=== PATIENT | female | born 1985 | race African-American/Black ===

== ENCOUNTER 2023-09-28 20:30 | Emergency (ER) | payer BC, SELFPAY ==
[2023-09-28 20:35] VITALS: BP 168/106
--- NOTE | 2023-09-28 21:04 | ED.GENMED ---
History of Present Illness
General
Chief Complaint: Flank Pain
Source: patient
Exam Limitations: none
Time Seen by Provider: 09/28/23 20:43
Travel History
Have you had any contact with someone who has COVID-19?: No
Do you have any symptoms of coronavirus? Fever > 100 degrees, chills, cough, shortness of breath, sore throat, loss of taste or smell, muscle aches, or headache?: No
History of Present Illness
History of Present Illness:
This is a 38 year old female that comes in with c/o left sided abd pain. States that she has severe left sided abd pain that goes around to her back. States that the pain started over the weekend. States that she can't sleep on that side due to the
pain. States that she is nauseated, has a slight headache with urinary frequency. Denies any fever, chills, chest pain, SOB, vomiting, diarrhea, dizziness, urinary burning.
Past History
Past History
ED Past Medical History: Asthma, Cancer (Salivary gland CA), NIDDM and Other (IBS, )
ED Past Surgical History: and Other (Salivary gland removed)
Social History
Tobacco: Non-smoker
Alcohol: Occasional
Personal: Single
Living: alone
Review of Systems
Review of Systems
All Other Systems: ROS reviewed and negative except as documented in HPI and ROS
Constitutional: Reports no symptoms; Denies fever or chills
EENT: Reports no symptoms
Respiratory: Reports no symptoms; Denies cough or trouble breathing
Cardiac: Reports no symptoms; Denies chest pain
ABD/GI: Reports abdominal pain and nausea; Denies vomiting or diarrhea
: Reports frequency; Denies dysuria or urgency
Musculoskeletal: Reports back pain (Left sided back pain)
Skin: Reports no symptoms
Neurological: Reports headache (Slight); Denies dizzy
Psychiatric: Reports no symptoms
Phy Exam
General Physical Exam
General Presentation: no apparent distress
General age: appears stated age
General Skin: warm and dry
General Habitus: obese
General Mental: alert
General Hydration: appears well hydrated
ENT Exam
ENT Exam: TM's normal, pharynx normal and neck supple
Eye Exam
Eye Exam: EOMI
Cardiovascular Exam
Cardiovascular Exam: regular rate/rhythm, no edema, no murmur and normal peripheral pulses
Pulmonary Exam
Pulmonary Exam: lungs clear, no respiratory distress, no rales, chest non tender, no crackles, no rhonchi, no wheezing and no cough
Gastrointestinal Exam
Gastrointestinal Exam: normal bowel sounds, soft, no organomegaly, no pulsatile mass, non distended, cva tenderness (Left sided) and tender (Left sided abd tenderness with palpation)
Musculoskeletal Exam
Musculoskeletal Exam: full ROM and no edema
Skin Exam
Skin Exam: normal color, warm/dry and no rash
Psychiatric Exam
Psychiatric Exam: normal mood/affect
Course
Orders/Labs/Results
Orders:
Orders
09/28/23 21:03
0.9% Sodium Chloride 1000 ml [Nss] 1,000 ml IV BOLUS
Ketorolac [Toradol] 30 mg IV NOW STA
Test Result ONCE
09/28/23 21:04
CT Abd/pelvis W Iv Cont Urgent
Comment:
Reason For Exam: Left sided abd pain
09/28/23 21:09
Complete Blood Count/With Diff Urgent
Comprehensive Metabolic Panel Urgent
HCG, Serum Qualitative Screen Urgent
Urinalysis Reflex To Culture Urgent
Date Specimen was Collected: 09/28/23
Time Specimen was Collected: 21:08
Urine Microscopic Reflex Cult Urgent
09/29/23 00:20
Acetaminophen [Tylenol] 1,000 mg PO NOW STA
Abnormal Lab Results
09/28/23
21:09
Glucose 144 H mg/dl
(70-99)
Urine RBC 3-6 A /HPF
(0-2)
Urine Bacteria (Reflex) Few A
(Negative)
Urine Albumin (Reflex) 1+ A
(Neg - Trace)
09/28/23 21:09
09/28/23 21:09
Hyperglycemia, Urine negative for infection. HCG negative.
Vital Signs
Initial and Last Documented VS:
Initial Vital Signs
Pulse Resp BP Pulse Ox
78 24 168/106 100
09/28/23 20:35 09/28/23 20:35 09/28/23 20:35 09/28/23 20:35
Last Documented Vital Signs
Pulse Resp BP Pulse Ox
78 24 168/106 100
09/28/23 20:35 09/28/23 20:35 09/28/23 20:35 09/28/23 20:35
MDM/Problems Addressed
Differential Diagnosis Includes:
Diverticulitis, Renal calculus
MDM/Problems Addressed:
This is a 38 year old female that comes in with c/o left sided abd pain, flank and back pain. States that this started on over the weekened and has continued to get worse. States that she can't sleep on the left sided due to the pain.
Will get labs, CT abd. IV fluids and pain medication.
Back into see patient. Explained that her blood work is normal and her Urine is negative for infection. CT is negative for any acute process. Explained that this may be just musculoskeletal. Patient can use Tylenol 1000mg every 6 hours for pain and
alternate with ibuprofen 600mg every 6 hours with food. Patient to follow up with the family doctor. Encouraged patient to take her Metformin daily. Patient to return with any concerns.
Chronic conditions affecting care: DM
Acute Exacerbation and/or Progression of Chronic Illness:
NA
*Radiology
Radiology exam reviewed: radiology read reviewed (CT night hawk- Mild mural thickening of the bladder may represent cystitis. Correlation with UR is recommended. No evidence of obstructing ureteral calculus. No evidence of diverticulitis. Fatty
liver. )
*Pulse Oximetry
Patient hypoxic: no
*EKG
Interpreted by ED Provider?: NA
Rate: EKG- N/A
*Double Needle Operator Lockstitch Interpretation
Rate: Double Needle Operator Lockstitch- N/A
*Critical Care Note
Total Time (30-74mins, 75-104mins- exclusive of procedures): Not Applicable
ED Attending Note
-
Portions of this chart may have been created with voice recognition software.� Occasional wrong word or��sound alike� substitutions may have occurred due to the inherent limitations of voice recognition software.
Discharge Plan
Departure
Patient Disposition: Home (Routine Discharge)
Date of Disposition: 09/29/23
Time of Disposition: 00:41
Patient with high blood pressure during this ER visit?: Yes
Condition: Good
Covid-19: Not Applicable
Discharge Problem:
Musculoskeletal back pain
Instructions: BLOOD PRESSURE, Musculoskeletal Pain
Prescriptions:
No Action
prednisone 50 mg tablet
50 mg PO DAILY Qty: 5 0RF
Referrals:
PRIVATE,PHYSICIAN [Family Provider] -
Activity Restrictions/Additional Instructions:
As discussed, your blood work shows that your blood sugar is elevated and your urine is negative for infection. Your CT shows that you have a fatty liver but there is no acute process. Please increase your water intake to 8-8oz glasses daily. This
is most likely coming from the back. Please use Tylenol 1000mg every 6 hours for pain and alternate with Ibuprofen 600mg every 6 hours with food for pain. Follow up with the family doctor for recheck. IF YOU HAVE INCREASED OR CHANGING PAIN, OR YOU
HAVE ANY OTHER CONCERNS PLEASE RETURN TO THE EMERGENCY ROOM.
Interventions
Interventions:
*Risk Screen - Suicide Last Done: 09/28/23 20:35
*General Assessment Last Done: 09/28/23 21:03
*Neglect/Abuse Screening Last Done: 09/28/23 20:35
ED- Fall Risk Assessment Last Done: 09/28/23 21:03
*ED COVID-19 Vaccine History Last Done: 09/28/23 21:03
YP-Kkutms-Frvitfkdtq Assessment Last Done: 09/28/23 21:03
ED-Female Genitourinary Assessment Last Done: 09/28/23 21:03
Discharge Date and Time
Print Language: [place]
[2023-09-28] MEDS: NSS 1000 IV (21:26)
[2023-09-28 21:27] LABS: % Basophils 0.7 % (0-2); % Eosinophils 3.8 % (0-6); % Immature Granulocytes 0.3 % (0-0.5); % Lymphocytes 34.7 % (20.5-51.1); % Monocytes 6.8 % (1.7-9.3); % Neutrophils 53.7 % (42.2-75.2); Absolute Basophils 0.1 10^3/uL (0-0.2); Absolute Eosinophils 0.3 10^3/uL (0-0.7); Absolute Lymphocytes 2.4 10^3/uL (1.2-3.4); Absolute Monocytes 0.5 10^3/uL (0.1-0.6); Absolute Neutrophils 3.7 10^3/uL (1.4-6.5); Hematocrit 38.4 % (37.0-47.0); Hemoglobin 13.7 g/dL (12.0-16.0); Mean Corp Hgb Conc. 35.7 g/dL (33.0-37.0); Mean Corpuscular Hgb 30.2 pg (27.0-31.0); Mean Corpuscular Volume 84.6 fL (81.0-99.0); Mean Platelet Volume 8.9 fL (7.4-10.4); Nucleated Red Blood Cells % 0 %; Platelet Count 282 10^3/uL (130-400); Red Blood Cell Count 4.54 10^6/uL (4.20-5.40); White Blood Cell Count 6.9 10^3/uL (4.8-10.8)
[2023-09-28] MEDS: TORADOL 30 MG IV (21:27)
[2023-09-28 21:28] LABS: Urine Albumin 1+ (Neg - Trace); Urine Bilirubin Negative (Negative); Urine Character Clear (Clear); Urine Color Yellow; Urine Glucose Negative (Negative); Urine Ketone Negative (Negative); Urine Leukocyte Negative (Negative); Urine Nitrite Negative (Negative); Urine Occult Blood Negative (Negative); Urine Urobilinogen Negative (Neg - 1+)
[2023-09-28 21:31] VITALS: BMI 64.6
[2023-09-28 21:38] LABS: Urine Squamous Cell >30 /LPF (Few)
[2023-09-28 21:40] LABS: HCG, Serum Qualitative Screen Negative; Urine Bacteria Few (Negative); Urine White Cell 0-2 /HPF (0-5)
[2023-09-28 21:49] LABS: ALT (SGPT) 32 U/L (0-35); AST (SGOT) 32 U/L (14-36); Albumin 3.8 g/dl (3.5-5.0); Alkaline Phosphatase 102 U/L (38-126); Blood Urea Nitrogen 7 mg/dl (7-17); Calcium 9.6 mg/dl (8.4-10.2); Carbon Dioxide 25 mmol/L (22-30); Chloride 106 mmol/L (98-107); Estimated Creatinine Clearance > 125 ml/min; Glucose 144 mg/dl (70-99); Potassium 3.7 mmol/L (3.5-5.1); Sodium 138 mmol/L (135-145); Total Bilirubin 0.4 mg/dl (0.2-1.3); Total Protein 6.8 g/dl (6.3-8.2); eGFR > 60.00
[2023-09-29] MEDS: TYLENOL 1000 MG PO (00:26)
== END 2023-09-29 00:55 | disposition home or self-care (01) ==
LOC: EMR 20:30
PROVIDERS: Clinical Nurse Specialist Family Health; EMERGENCY PHYSICIAN Emergency Medicine
DX: R10.9 Unspecified abdominal pain (principal); J45.909 Unspecified asthma, uncomplicated; E11.65 Type 2 diabetes mellitus with hyperglycemia; K58.9 Irritable bowel syndrome, unspecified; Z85.818 Personal history of malignant neoplasm of other sites of lip, oral cavity, and pharynx; M54.9 Dorsalgia, unspecified
CPT/HCPCS: 99284; 96374; 96361; 74177; 80053; 81003; 81015; 84703; 85025; Q9967

== ENCOUNTER 2023-11-28 14:49 | Emergency (ER) | payer BC, SELFPAY ==
[2023-11-28 14:55] VITALS: BP 143/76
[2023-11-28 14:59] LABS: Glucose - Point of Care 352 mg/dl (70-99)
== END 2023-11-28 17:52 | disposition left against medical advice (07) ==
LOC: EMR 14:49
DX: R73.9 Hyperglycemia, unspecified (principal); Z53.21 Procedure and treatment not carried out due to patient leaving prior to being seen by health care provider
CPT/HCPCS: 82962